=== PATIENT | male | born 1985 | race Caucasian/White ===

== ENCOUNTER 2020-10-08 23:04 | Observation (INO) | payer OTHER ==
[~2020-10-08] VITALS: Ht 180.3 cm; Wt 125.6 kg
[2020-10-09 01:20] LABS: HEMOGLOBIN 14.9 gm/dl (14.0-17.5); RED BLOOD COUNT 5.07 M/UL (4.20-5.50); WHITE BLOOD COUNT 11.5 K/UL (4.5-11.0)
[2020-10-09 01:33] LABS: BUN/CREATININE RATIO 20 (0-10)
[2020-10-09] MEDS ORDERED: OXYCODONE HCL5 MG PO (13:46)
[2020-10-09] MEDS ORDERED: ZOFRAN4 MG PO (13:46)
== END 2020-10-09 13:44 | disposition home or self-care (01) ==
LOC: ER1 23:04 → M/S 10-09 03:10 → CDU 10-09 03:10 → M/S 10-09 04:24
PROVIDERS: Physician Assistant; ADMIT Surgery
PROC: 0DTJ4ZZ Resection of Appendix, Percutaneous Endoscopic Approach (ICD-10-PCS; principal; 2020-10-09 12:00)
DX: K35.80 Unspecified acute appendicitis (principal); Z20.822 Contact with and (suspected) exposure to COVID-19
CPT/HCPCS: 80053; 81001; 83605; 83690; 85025; 96374; 96375; 96376; 99285; G0378; J1885; J2001; J2250; J2405; J2543; J2704; J2710; J3010; Q9967; U0002